=== PATIENT | female | born 1950 | race Two or more races ===

== ENCOUNTER 2018-03-06 07:38 | Outpatient (CLI) | payer OTHER | END 2018-03-06 07:41 | disposition home or self-care (01) | LOC: SONOGRAMA 07:38 | DX: E04.1 Nontoxic single thyroid nodule (principal) ==

== ENCOUNTER 2018-04-18 06:00 | Day surgery (SDC) | payer OTHER | END 2018-04-18 10:35 | disposition home or self-care (01) | LOC: AMB-ENDOS 06:00 | DX: D12.2 Benign neoplasm of ascending colon (principal); D12.4 Benign neoplasm of descending colon; D12.3 Benign neoplasm of transverse colon; K64.1 Second degree hemorrhoids ==